=== PATIENT | female | born 2005 | race Caucasian/White ===

== ENCOUNTER 2023-10-02 01:07 | Emergency (ER) | payer OTHER, SELFPAY ==
[2023-10-02 01:14] VITALS: BP 117/78
--- NOTE | 2023-10-02 01:57 | ED.GENMED ---
History of Present Illness
General
Chief Complaint: Allergic Reaction
Source: patient
Exam Limitations: none
Time Seen by Provider: 10/02/23 01:46
History of Present Illness
History of Present Illness:
This is a 17 year old female that comes in with c/o rash. States that she may have had one on her leg a few days ago but she really noticed this yesterday. States that she has a few spots on her legs. States that it has not spread onto the torso and
slightly on the stomach. States that it doesn't itch on the torso. States that she did have Strep throat last week and wad given Zithromax and her last dose was on Saturday. States that her throat is feeling better. Denies any fever, chills, chest
pain, SOB, abd pain, nausea, vomiting, diarrhea, headache, dizziness, urinary burning.
Past History
Past History
ED Past Medical History: None
ED Past Surgical History: None
Social History
Tobacco: Non-smoker
Alcohol: None
Personal: Single
Living: with family
Review of Systems
Review of Systems
All Other Systems: ROS reviewed and negative except as documented in HPI and ROS
Constitutional: Reports no symptoms; Denies fever or chills
EENT: Reports no symptoms
Respiratory: Reports no symptoms; Denies cough or trouble breathing
Cardiac: Reports no symptoms; Denies chest pain
ABD/GI: Reports no symptoms; Denies abdominal pain, nausea, vomiting or diarrhea
: Reports no symptoms; Denies dysuria, frequency or urgency
Musculoskeletal: Reports no symptoms
Skin: Reports rash (Slightly on her leg and torso)
Neurological: Reports no symptoms; Denies dizzy or headache
Psychiatric: Reports no symptoms
Phy Exam
General Physical Exam
General Presentation: well appearing and no apparent distress
General age: appears stated age
General Skin: warm and dry
General Habitus: normal
General Mental: alert
General Hydration: appears well hydrated
ENT Exam
ENT Exam: TM's normal, pharynx normal and neck supple
Eye Exam
Eye Exam: EOMI
Cardiovascular Exam
Cardiovascular Exam: regular rate/rhythm, no edema, no murmur and normal peripheral pulses
Pulmonary Exam
Pulmonary Exam: lungs clear, no respiratory distress, no rales, chest non tender, no crackles, no rhonchi, no wheezing and no cough
Gastrointestinal Exam
Gastrointestinal Exam: normal bowel sounds, non tender, soft, no organomegaly, no pulsatile mass and non distended
Musculoskeletal Exam
Musculoskeletal Exam: full ROM and no edema
Skin Exam
Skin Exam: normal color, warm/dry, no petechia and other (Few papules and pustule noted on the legs. Bilateral flank papules and very few on the abd. Negative for any rash on the arms. )
Psychiatric Exam
Psychiatric Exam: normal mood/affect
Course
Vital Signs
Initial and Last Documented VS:
Initial Vital Signs
Temp Pulse Resp BP Pulse Ox
98.9 F 80 20 117/78 100
10/02/23 01:14 10/02/23 01:14 10/02/23 01:14 10/02/23 01:14 10/02/23 01:14
Last Documented Vital Signs
Temp Pulse Resp BP Pulse Ox
98.9 F 80 20 117/78 100
10/02/23 01:14 10/02/23 01:14 10/02/23 01:14 10/02/23 01:14 10/02/23 01:33
MDM/Problems Addressed
Differential Diagnosis Includes:
Viral rash, MRSA
MDM/Problems Addressed:
This is a 17 year old female that comes in with c/o rash. States that she noticed a spot on her leg a few days ago and she thought it was from shaving. Then she started with a rash on the [place]. States that this does not itch.
Will have patient follow up with the [facility]. Explained that she does not need any steroids and that this may be a viral rash and it will just go away on its own. One pustula on the left leg was scrapped and a culture was sent. Patient to
return with any concerns
Chronic conditions affecting care:
NA
Acute Exacerbation and/or Progression of Chronic Illness:
NA
*Pulse Oximetry
Patient hypoxic: no
*EKG
Interpreted by ED Provider?: NA
Rate: EKG- N/A
*Perfume Compounder Interpretation
Rate: Perfume Compounder- N/A
*Critical Care Note
Total Time (30-74mins, 75-104mins- exclusive of procedures): Not Applicable
ED Attending Note
-
Portions of this chart may have been created with voice recognition software.� Occasional wrong word or��sound alike� substitutions may have occurred due to the inherent limitations of voice recognition software.
Discharge Plan
Departure
Patient Disposition: Home (Routine Discharge)
Date of Disposition: 10/02/23
Time of Disposition: 02:05
Patient with high blood pressure during this ER visit?: No
Condition: Good
Covid-19: Not Applicable
Discharge Problem:
Rash
Instructions: Skin Rash ED
Prescriptions:
No Action
[id number] 1 DROP drops,suspension
4 drp otic (ear) QID Qty: 1 0RF
[id number] 1 DROP drops,suspension
4 drp otic (ear) TID Qty: 1 2RF
Referrals:
Abraham Sal MD [Family Provider] -
Mary Zapata MD [Consulting Staff] - Follow up in 2-3 days
Activity Restrictions/Additional Instructions:
As discussed, this may be a viral rash and will just go away on its own. Please keep area's cleansed with warm soapy water. A culture has been sent and if this would come back positive for any bacteria you will be called. Follow up with the
[facility] [employer] [facility] for further evaluation. IF YOU HAVE ANY OTHER CONCERNS PLEASE RETURN TO THE EMERGENCY ROOM
Interventions
Interventions:
*Risk Screen - Suicide Last Done: 10/02/23 01:19
*General Assessment Last Done: 10/02/23 01:14
*Neglect/Abuse Screening Last Done: 10/02/23 01:14
ED- Fall Risk Assessment Last Done: 10/02/23 01:14
*ED COVID-19 Vaccine History Last Done: 10/02/23 01:14
ED- Cardiac Assessment Last Done: 10/02/23 01:33
ED- Pulmonary Assessment Last Done: 10/02/23 01:33
ED-Skin Assessment Last Done: 10/02/23 01:32
Discharge Date and Time
Print Language: PALAUAN
[2023-10-02 02:16] VITALS: BP 115/65
== END 2023-10-02 02:17 | disposition home or self-care (01) ==
LOC: EMR 01:07
PROVIDERS: EMERGENCY PHYSICIAN Student in an Organized Health Care Education/Training Program; FAMILY PHYSICIAN Family Medicine
DX: R21 Rash and other nonspecific skin eruption (principal)
CPT/HCPCS: 99282; 87070; 87205